=== PATIENT | female | born 1985 | race Caucasian/White ===

== ENCOUNTER 2016-12-18 15:57 | Emergency (ER) | payer BC, MEDICAID ==
--- NOTE | ~2016-12-18 | CR169 ---
[facility]. [facility] A Service of [facility] RADIOLOGY TEXT RESULTS PATIENT: EMMANUELLE STARKEY LOCATION: SED : 89 UNIT #: [id number] AGE: [address]: DEACON PINTO SEX: F ORDER DR: [id number] [address] [id number] MR#: [id number] Acc #: [id number] NAME: EMMANUELLE STARKEY : 1985 SEX: F STUDY DATE/TIME: 12/18/2016 18:35 UNIT: SED ROOM: STUDY DESCRIPTION: CR Knee 2 Views Lt Attending Physician: Deacon Pinto Aprn Ordering Physician: Naeem Healy Primary Care Physician: Primary Care Physician No MEDICAL IMAGING REPORT This report is preliminary unless electronic signature is present. EXAM Left knee 2 views 12/18/2016 HISTORY Left knee pain posteriorly beginning today at 10.00 a.m. Knee popped at work. FINDINGS AP and lateral projection of the knee shows smooth articular anatomy without indication of fracture or dislocation at the major weight-bearing surface of the knee. There is no indication of radiopaque foreign body about the knee surface or joint effusion. IMPRESSION Normal knee. Dictated by... Sadiq Beckford M.D. THIS IS AN ELECTRONICALLY VERIFIED REPORT Sadiq Beckford M.D. at 12/19/2016 2:13 PM ADA/asif TD: 12/19/2016 09:45 JOB #: [id number] MEDICAL IMAGING REPORT Page 1 of 1
[~2016-12-18 15:57] MED LIST: ALBUTEROL17 GM INH; AMOXICILLIN PO; DOLOBID500 MG PO; DOXYCYCLINE PO; EC-NAPROSYN500 MG PO; FLAGYL PO; FLEXERIL PO; KETOPROFEN PO; LODINE XL PO; LORTAB 2.5/5001 TAB PO; MEDROL PO; MOBIC PO; PHENERGAN PO; PRENATAL MULITV1 TAB PO; PROVERA PO; VICODIN 5/500 T1 TAB PO; ZITHROMAX PO; ZYRTEC-D T1 TAB.SR . PO
[2016-12-18] MEDS ORDERED: LANTUS100 U/ML (16:04)
[2016-12-18] MEDS ORDERED: NOVOLOG100 UNIT/1 (16:04)
== END 2016-12-18 19:10 | disposition home or self-care (01) ==
LOC: SED 15:57
DX: S83.412A Sprain of medial collateral ligament of left knee, initial encounter (principal); S83.422A Sprain of lateral collateral ligament of left knee, initial encounter; F17.210 Nicotine dependence, cigarettes, uncomplicated; Z88.5 Allergy status to narcotic agent; Z88.8 Allergy status to other drugs, medicaments and biological substances; Y93.01 Activity, walking, marching and hiking
CPT/HCPCS: 29505; 73560; 99283